=== PATIENT | male | born 1945 ===

== ENCOUNTER 2018-06-25 08:02 | Emergency (ER) | payer OTHER ==
[2018-06-25] MEDS: LORAZEPAM 2 MG INJ IV (08:30)
[2018-06-25] MEDS ORDERED: morphine 4 MG/ML VIAL (09:01)
[2018-06-25] MEDS ORDERED: ONDANSETRON 4 MG INJ (09:01)
[2018-06-25] MEDS: DIPHTH/TET/ACEL PERTUSS (ADULT) 0.5 ML VIAL IM* (09:06)
[2018-06-25] MEDS: morphine 4 MG/ML VIAL IV (09:07)
[2018-06-25] MEDS: LACTATED RINGER'S 1,000 ML IV (09:07)
[2018-06-25] MEDS: ONDANSETRON 4 MG INJ IV (09:07)
[2018-06-25] MEDS: IOHEXOL 300MG/ML 150 ML BTL (09:10)
[2018-06-25] MEDS: SOD CHLORIDE 0.9% 200 ML (09:35)
== END 2018-06-25 09:10 | disposition short-term general hospital (02) ==
LOC: E/R 08:02
DX: S22.42XA Multiple fractures of ribs, left side, initial encounter for closed fracture (principal); S27.0XXA Traumatic pneumothorax, initial encounter; S00.01XA Abrasion of scalp, initial encounter; E11.9 Type 2 diabetes mellitus without complications; I10 Essential (primary) hypertension; F17.210 Nicotine dependence, cigarettes, uncomplicated; R51 Headache; V49.40XA Driver injured in collision with unspecified motor vehicles in traffic accident, initial encounter; Z79.84 Long term (current) use of oral hypoglycemic drugs; Z23 Encounter for immunization
CPT/HCPCS: 70450; 71045; 71260; 72125; 74177; 90471; 90715; 96374; 96375; 99291-25